=== PATIENT | male | born 1980 | race Caucasian/White ===

== ENCOUNTER 2021-06-09 02:34 | Emergency (ER) | payer OTHER, BC ==
[2021-06-09 03:05] VITALS: BP 103/73; PULSE 87
[2021-06-09] MEDS: Bacitracin Oint 1 GM U/D Packet TOP ONE (04:03)
== END 2021-06-09 04:10 | disposition home or self-care (01) ==
LOC: LL.ED 02:34
DX: S61.211A Laceration without foreign body of left index finger without damage to nail, initial encounter (principal); W26.8XXA Contact with other sharp object(s), not elsewhere classified, initial encounter; Y99.0 Civilian activity done for income or pay
CPT/HCPCS: 12002; 99282-25